=== PATIENT | female | born 1955 | race Caucasian/White ===

== ENCOUNTER → 2016-12-21 | Outpatient (CLI) | payer BC ==
[2016-12-21 13:43] LABS: BASOPHILS % (AUTO) 0 % (0-2); EOSINOPHILS # (AUTO) 0.1 10^3uL; EOSINOPHILS % (AUTO) 1 % (0-4); LYMPHOCYTES # (AUTO) 0.7 X10^3; MEAN CORPUSCULAR HEMOGLOBIN 30.9 PG (26.0-34.0); MEAN CORPUSCULAR HGB CONC 34.7 g/dL (31.0-37.0); MEAN CORPUSCULAR VOLUME 89 FL (80-100); MEAN PLATELET VOLUME 9.9 FL (6.0-9.5); MONOCYTES # (AUTO) 0.4 X10^3; MONOCYTES % (AUTO) 8 % (3-11); NEUTROPHILS # (AUTO) 4.5 X10^3; NEUTROPHILS % (AUTO) 78 % (51-67); PLATELET COUNT 202 10^3uL (150-450); WHITE BLOOD COUNT 5.78 10^3uL (4.0-11.0)
== END ==
LOC: LAB 13:30
PROVIDERS: ATTEND Internal Medicine
DX: I10 Essential (primary) hypertension (principal); R69 Illness, unspecified
CPT/HCPCS: 36415; 71020; 85025; 86140

== ENCOUNTER → 2017-02-23 | Outpatient (REF) | payer BC ==
[~2017-02-23] MED LIST: AC325T PO; AC500T PO; ALBU2.5V4 IH; ALBU6.7H IH; ANTI1CAP2 PO; ASPI-345 PO; ATOR20TA PO; ATOR40TA2 PO; AZIT250T PO; BENZ-22 PO; BENZ200C3 PO; CALC500T55 PO; CEFD300C9 PO; CEPH-507 PO; CPR500T PO; DEXT7.5S PO; DOXY100C2 PO; FLUC100T6 PO; FLUT8AER2 IH; GFN600TCR PO; GUAI120013 PO; INSU100I9 SC; INSU100V SC; INSU100V2 SC; INSU100V2 SQ; INSU100V32 SC; INSU100V32 SQ; IPR14IN INH; IPRA3AMP11 INH; KETO10TA55 PO; LEVO750T39 PO; LOPE2CAP29 PO; LOSA25TA2 PO; METO-270 PO; MTP25TSR PO; MULT-955 PO; NFLOSA25TA PO; NS.65NA45 NS; OMEG-33 PO; OMEP20CA6 PO; OMG1KC PO; ONDAN4ODT PO; OSEL30CA PO; OSLT75C PO; PRD10T PO; PRED10TA PO; SIMV20TA PO; TIOT18CA IH; TSSN473B PO
[2017-02-23 11:57] LABS: BILIRUBIN,URINE Negative (Negative); COLOR,URINE Yellow; GLUCOSE, URINE (UA) 3+ (Negative); LEUKOCYTE ESTERASE ,URINE Negative (Negative); PH,URINE 5.5 (5.0 - 8.0); UROBILINOGEN,URINE 0.2 mg/dL (0.2-1.0)
[2017-02-23 11:58] LABS: CLARITY,URINE Slightly Cloudy
[2017-02-23 12:05] LABS: BASOPHILS % (AUTO) 0 % (0-2); EOSINOPHILS # (AUTO) 0.3 10^3uL; EOSINOPHILS % (AUTO) 3 % (0-4); LYMPHOCYTES # (AUTO) 2.2 X10^3; MEAN CORPUSCULAR HEMOGLOBIN 30.5 PG (26.0-34.0); MEAN CORPUSCULAR HGB CONC 33.8 g/dL (31.0-37.0); MEAN CORPUSCULAR VOLUME 91 FL (80-100); MONOCYTES # (AUTO) 0.4 X10^3; MONOCYTES % (AUTO) 5 % (3-11); NEUTROPHILS # (AUTO) 4.8 X10^3; NEUTROPHILS % (AUTO) 62 % (51-67); PLATELET COUNT 243 10^3uL (150-450); WHITE BLOOD COUNT 7.71 10^3uL (4.0-11.0)
[2017-02-23 13:45] LABS: ALBUMIN 4.1 g/dL (3.4-5.0); ANION GAP 17.3 MEQ/L (3-15)
== END ==
LOC: LAB 11:38
PROVIDERS: ATTEND Internal Medicine
DX: R10.12 Left upper quadrant pain (principal); R31.0 Gross hematuria; I10 Essential (primary) hypertension; E11.9 Type 2 diabetes mellitus without complications
CPT/HCPCS: 80053; 80061; 81003; 82150; 83036; 83690; 84443; 85025; 86140

== ENCOUNTER 2017-03-01 07:06 | Day surgery (SDC) | payer BC ==
[~2017-03-01] VITALS: Ht 165.1 cm; Wt 115.9 kg
[~2017-03-01 07:06] MED LIST changes: +LACTATED RINGERS 1,000 ML IV SCH; +SODIUM CHLORIDE FLUSH 3 ML SYR IV PRN
--- OUTSIDE RECORDS SUMMARY | 2017-03-01 07:09 | XMS REPORT | Continuity Of Care Document ---
Author Author [facility] Organization [facility] Address [address] [address] Phone Care Team Providers Care Contract Programmer Name Role Phone ANGELA WASHBURN, Idalmis PP [phone] Idalmis SINGH MD AT Results Lab Results Visit/Account #[id number] (July 28, 2016 6:34pm - July 28, 2016 9: 51pm) Test Result Date/Time CREATININE,POINT OF CARE POC CREATININE(0.6-1.3 MG/DL) 0.7 MG/DL July 28, 2016 6:47pm 33892-0: EST GLOMERULAR FILTRATION RATE(Greater than or equal to 60) Greater than 60 July 28, 2016 6:47pm POCGL POCGL(70-110 MG/DL) 90 MG/DL July 28, 2016 6:45pm 77 MG/DL July 28, 2016 8:15pm 99599-9: COMPLETE BLOOD COUNT WITH DIFF WHITE BLOOD COUNT(4.0-11.0 10E3/UL) 8.1 10E3/UL July 28, 2016 6:45pm RED BLOOD COUNT(4.00-5.20 10E6/UL) 4.18 10E6/UL July 28, 2016 6:45pm HEMOGLOBIN(12.0-16.0 G/DL) 13.0 G/DL July 28, 2016 6:45pm HEMATOCRIT(36.0-46.0 %) 38.0 % July 28, 2016 6:45pm MEAN CORPUSCULAR VOLUME(82.0-100.0 FL) 90.9 FL July 28, 2016 6:45pm 33847-2: MEAN CORPUSCULAR HEMOGLOBIN(26.0-34.0 PG) 31.1 PG July 28, 2016 6:45pm MEAN CORPUSCULAR HGB CONC(31.5-36.5 G/DL) 34.2 G/DL July 28, 2016 6:45pm RED CELL DISTRIBUTION WIDTH(11.5-14.5 %) 12.4 % July 28, 2016 6:45pm 777-3: PLATELET COUNT(150-450 10E3/UL) 259 10E3/UL July 28, 2016 6:45pm MEAN PLATELET VOLUME(8.2-12.4 FL) 9.5 FL July 28, 2016 6:45pm 770-8: NEUTROPHILS % (AUTO)(40-70 %) 55 % July 28, 2016 6:45pm LYMPHOCYTES % (AUTO)(15-45 %) 35 % July 28, 2016 6:45pm 5905-5: MONOCYTES % (AUTO)(2-10 %) 7 % July 28, 2016 6:45pm 713-8: EOSINOPHILS % (AUTO)(0-6 %) 3 % July 28, 2016 6:45pm 706-2: BASOPHILS % (AUTO)(0-1 %) 1 % July 28, 2016 6:45pm 96923-2: IMMATURE GRANS % (AUTO)(0-0 %) 0 % July 28, 2016 6:45pm NUCLEATED RBCS (AUTO)(0-0 %) 0 % July 28, 2016 6:45pm 751-8: NEUTROPHILS # (AUTO)(2.5-7.5 10E3/UL) 4.5 10E3/UL July 28, 2016 6:45pm 64744-1: LYMPHOCYTES # (AUTO)(1.0-4.0 10E3/UL) 2.8 10E3/UL July 28, 2016 6:45pm 742-7: MONOCYTES # (AUTO)(0.2-0.8 10E3/UL) 0.6 10E3/UL July 28, 2016 6:45pm 711-2: EOSINOPHILS # (AUTO)(0.0-0.4 10E3/UL) 0.2 10E3/UL July 28, 2016 6:45pm 704-7: BASOPHILS # (AUTO)(0.0-0.2 10E3/UL) 0.0 10E3/UL July 28, 2016 6:45pm IMMATURE GRANS # (AUTO)(0.0-0.0 10E3/UL) 0.0 10E3/UL July 28, 2016 6:45pm DIFF TYPE AUTOMATED July 28, 2016 6:45pm UA WITH SCREEN FOR CULTURE 5778-6: COLOR,URINE YELLOW July 28, 2016 8:35pm 51409-2: CLARITY,URINE CLEAR July 28, 2016 8:35pm GLUCOSE, URINE(NEGATIVE MG/DL) 100 MG/DL July 28, 2016 8:35pm URINE BILIRUBIN(NEGATIVE) NEGATIVE July 28, 2016 8:35pm KETONES,URINE(NEGATIVE MG/DL) NEGATIVE MG/DL July 28, 2016 8:35pm URINE SPECIFIC GRAVITY(1.001-1.035) 1.015 July 28, 2016 8:35pm 37415-7: URINE BLOOD(NEGATIVE) NEGATIVE July 28, 2016 8:35pm 2756-5: URINE PH(5.0-9.0) 6.5 July 28, 2016 8:35pm URINE PROTEIN(Less than 20 MG/DL) NEGATIVE MG/DL July 28, 2016 8:35pm 02181-1: URINE UROBILINOGEN(0.2-1.0 MG/DL) 0.2 MG/DL July 28, 2016 8:35pm URINE NITRITE(NEGATIVE) NEGATIVE July 28, 2016 8:35pm 5799-2: LEUKOCYTE ESTERASE ,URINE(NEGATIVE) NEGATIVE July 28, 2016 8:35pm 630-4: URINE CULTURE NOT INDICATED July 28, 2016 8:35pm URINE MICROSCOPIC REQUIRED NO July 28, 2016 8:35pm 47168-6: COMPLETE METABOLIC PROFILE GLUCOSE(70-110 MG/DL) 97 MG/DL July 28, 2016 6:45pm BLOOD UREA NITROGEN(6-20 MG/DL) 21 MG/DL July 28, 2016 6:45pm CREATININE(0.50-1.20 MG/DL) 0.64 MG/DL July 28, 2016 6:45pm 19216-1: EST GLOMERULAR FILTRATION RATE(Greater than or equal to 60) Greater than or equal to 60 Result Comments: If the patient is of -[place] descent/extraction multiply the eGFR value by 1.212 to obtain the actual eGFR. >=60 mg/dL Normal 30-59 mg/dL Moderate Kidney Disease 15-29 mg/dL Severe Kidney Disease <15 mg/dL Kidney Failure July 28, 2016 6:45pm BUN CREATININE RATIO(10.0-20.0 RATIO) 33.0 RATIO July 28, 2016 6:45pm SODIUM(135-145 MMOL/L) 135 MMOL/L July 28, 2016 6:45pm POTASSIUM(3.6-5.0 MMOL/L) 3.5 MMOL/L July 28, 2016 6:45pm CHLORIDE(101-111 MMOL/L) 105 MMOL/L July 28, 2016 6:45pm 2027-: CO2(21-31 MMOL/L) 24 MMOL/L July 28, 2016 6:45pm ANION GAP(8-18) 10 July 28, 2016 6:45pm OSMO CALCULATED(270.0-290.0) 273.0 July 28, 2016 6:45pm CALCIUM(8.5-10.5 MG/DL) 9.1 MG/DL July 28, 2016 6:45pm BILIRUBIN,TOTAL(0.1-1.2 MG/DL) 0.7 MG/DL July 28, 2016 6:45pm ALKALINE PHOSPHATASE(42-121 IU/L) 67 IU/L July 28, 2016 6:45pm ASPARTATE AMINO TRANSFERASE(10-42 IU/L) 23 IU/L July 28, 2016 6:45pm ALANINE AMINOTRANSFERASE(10-60 IU/L) 23 IU/L July 28, 2016 6:45pm TOTAL PROTEIN(6.4-8.2 G/DL) 7.3 G/DL July 28, 2016 6:45pm ALBUMIN(3.5-5.5 G/DL) 4.3 G/DL July 28, 2016 6:45pm GLOBULIN(2.4-3.6) 3.0 July 28, 2016 6:45pm ALBUMIN/GLOBULIN RATIO(0.9-1.8 RATIO) 1.4 RATIO July 28, 2016 6:45pm 3040-3: LIPASE 3040-3: LIPASE(22-51 U/L) 31 U/L July 28, 2016 6:45pm Allergies and Adverse Reactions Allergies and Adverse Reactions Patient Unit Number: [id number] Agent Type Reaction Severity Status CODEINE Drug Allergy Unknown Unknown Active HYDROCODONE Drug Allergy HIVES Moderate Active BENZOIN Drug Adverse Reaction Unknown Unknown Active CORTISONE Drug Allergy Unknown Unknown Active LATEX Drug Allergy itching Moderate Active tape Adverse Reaction blisters Severe Active Problem List Problem List Visit/Account #[id number] (July 28, 2016 6:34pm - July 28, 2016 9: 51pm) Acute Problems: Code/Condition Comments Documented Start Date Documented Resolved Date Code (s) Acute left flank pain ICD10: R10.12 Acute left flank pain ICD9: 789.00 Acute left flank pain SNOMED: 382450285 Acute left flank pain Plan of Care Plan Of Care Visit/Account #[id number] (July 28, 2016 6:34pm - July 28, 2016 9: 51pm) Patient Instructions Drink plenty of water. Return to the ER if any return of symptoms. Follow up with your primary care physician. Vital Signs Vital Signs Visit/Account #[id number] (July 28, 2016 6:34pm - July 28, 2016 9: 51pm) Sign First Result Last Result Code(s) Temperature in Fahrenheit Temperature (Fahrenheit): 99.4 [degF] On July 28, 2016 6:32pm Temperature (Fahrenheit): 97.7 [degF] On July 28, 2016 9:41pm 8310-5 Body Temperature Weight in Kilograms Weight (Kilograms): 104.55 kg On July 28, 2016 6:32pm 3141-9 Weight Measured 17210-4 Body weight measured in kilograms Functional Status Functional and Cognitive Status No Functional Status Data Medications Inpatient/Ordered Medications - Medications administered during hospital visit Visit/Account #[id number] (July 28, 2016 6:34pm - July 28, 2016 9: 51pm) Medication Route Sig/Schedule Precondition/Indication Comments/ Instructions Codes ZOFRAN INJ(ONDANSETRON HCL) 4 MG/2 ML INJECTION Dose: 2 ML INTRAVEN NOW Label Comments: SLOW IV PUSH MAY INCREASE FALL RISK 2 ML Ondansetron 2 MG/ML Injection (RxNorm): 9462914 ZOFRAN INJ (ONDANSETRON HCL) NDC: 17258850190 IV Medication Carriers: NORMAL SALINE(SODIUM CHLORIDE) 1000 ML INJECTION Dose: 1000 ML INTRAVEN .Q1H (Rate: 1000 MLS/HR Duration: 1 HR) Carriers: Sodium Chloride 0.154 MEQ/ML Injectable Solution (RxNorm): 282756 NORMAL SALINE (SODIUM CHLORIDE) NDC: 12541467324 TORADOL INJ(KETOROLAC TROMETHAMINE) 30 MG/ML INJECTION Dose: 1 ML INTRAVEN NOW Label Comments: DO NOT EXCEED 5 DAYS OF THERAPY 1 ML Ketorolac Tromethamine 30 MG/ML Injection (RxNorm): 7248483 TORADOL INJ (KETOROLAC TROMETHAMINE) NDC: 04095699491 DILAUDID(HYDROmorphone HCL) 2 MG/ML INJECTION Dose: 0.5 ML INTRAVEN NOW Label Comments: MAY INCREASE FALL RISK 1 ML Hydromorphone Hydrochloride 2 MG/ML Cartridge (RxNorm): 9240354 DILAUDID (HYDROmorphone HCL) NDC: 62850121490 History Of Encounters Encounters Visit/Account #[id number] (July 28, 2016 6:34pm - July 28, 2016 9: 51pm) Account Status Physican Of Record Reason For Visit Visit Diagnosis Start Date/Time Stop Date/Time ER JANICE SINGH MD L FLANK PAIN Not Available Jul 28, 2016 6:34pm Jul 28, 2016 9:51pm History of Procedures Procedure List No procedures recorded. Discharge Instructions Discharge Instructions Visit/Account #[id number] (July 28, 2016 6:34pm - July 28, 2016 9: 51pm) DISCHARGE INSTRUCTIONS Physician Documentation Social History Social History No Social History Data. Immunizations Immunizations Patient Unit Number: [id number] Immunizations No immunizations recorded.
[2017-03-01 07:10] VITALS: BP 158/89
[2017-03-01] MEDS ORDERED: LIDOCAINE 4% TOPICAL 4.5 ML SYR ONE (07:13)
[2017-03-01] MEDS ORDERED: SIMETHICONE 40 MG/0.6 ML (MYLICON DROPS) ORAL SYRINGE ONE (07:13)
[2017-03-01] MEDS ORDERED: MIDAZOLAM 2 MG/2 ML (VERSED) VIAL ONE (07:55)
[2017-03-01] MEDS ORDERED: ALFENTANIL 500 MCG/ML (ALFENTA) 5 ML AMP IV ONE (07:55)
[2017-03-01] MEDS ORDERED: LIDOCAINE 2% BOLUS 100 MG/5 ML (XYLOCAINE) SYRINGE ONE (07:55)
[2017-03-01] MEDS ORDERED: PROPOFOL 20 ML IV ONE (07:55)
[2017-03-01] MEDS ORDERED: LABETALOL HCL 100 MG/20 ML VIAL IV ONE (08:16)
[2017-03-01 08:34] VITALS: BP 126/72
[2017-03-01 08:54] VITALS: BP 133/80
--- NOTE | 2017-03-01 12:49 | OPERATIVE REPORT ---
DATE OF OPERATION: 03/01/2017 PRE-OPERATIVE DIAGNOSIS: Left upper quadrant abdominal pain POST-OPERATIVE DIAGNOSIS: Gastric ulcers OPERATIVE PROCEDURE: Esophagogastroduodenoscopy with biopsies SURGEON: Mack Babin MD ANESTHESIA: Monitored anesthesia care FINDINGS: 1. There were several superficial ulcers in the gastric antrum along the lesser curvature, including 2 that were a bit larger than the others. Photographs were obtained and biopsies were taken from the ulcer edges in the larger 2 lesions. A biopsy was also obtained from the antrum for MARY BETH. 2. The duodenal bulb was somewhat inflamed and biopsies were taken here as well. 3. The esophagus appeared normal without any inflammatory changes or neoplasia. 4. No inflammation, neoplasia or angiodysplasia was seen. INDICATION: The patient is a 61-year-old referred by Dr. Vicente with persistent left upper quadrant abdominal pain worse when eating and radiating to the back. She presents here today for upper endoscopy. DESCRIPTION OF PROCEDURE: The patient was informed of the risks and benefits and agreed to proceed. Her oropharynx was anesthetized with Xylocaine and a bite block was placed. Sedation was administered the lighted endoscope was passed down the esophagus and the stomach. Air was insufflated and the pylorus was cannulated. The first, second and third portions of the duodenum were visualized. There was some mild to moderate inflammation seen as bleeding from the mucosa and the duodenal bulb. Biopsies were obtained and a photograph was taken. The scope was brought back into the stomach where the antrum, body, and fundus were carefully inspected. I could immediately see the dark accumulation of clotted blood in a few areas suggestive erosions. Upon closer inspection, it was obvious that at least a few of these areas were ulcerations, including 2 that were a bit larger than the others. I biopsies the edges of these 2 larger ones, as well as another area of antrum for MARY BETH. There weren't any ulcers proximally in the stomach and this appeared completely normal without any inflammation, both on regular view and retroflexion. The diaphragmatic hiatus at 42 cm with the squamocolumnar junction at the same level. There were no irregularities there. The distal and proximal esophageal mucosa appeared normal throughout. The scope was removed completing the procedure. The patient tolerated the procedure without complications. I did prescribe Omeprazole 40 mg daily as well as Carafate 1 gm q.i.d. for 3 weeks as initial treatment for these ulcers and she will be instructed to avoid NSAIDS, alcohol and caffeine. I will have her follow up in the clinic next week.
== END 2017-03-01 09:02 | disposition home or self-care (01) ==
LOC: ASC 07:06
PROVIDERS: ATTEND Surgery
DX: K29.50 Unspecified chronic gastritis without bleeding (principal); I10 Essential (primary) hypertension; E11.9 Type 2 diabetes mellitus without complications; Z79.4 Long term (current) use of insulin; Z87.11 Personal history of peptic ulcer disease; Z79.899 Other long term (current) drug therapy; Z79.82 Long term (current) use of aspirin
CPT/HCPCS: 43239; 87077; J2250; J7120